=== PATIENT | female | born 1950 | race Caucasian/White ===

== ENCOUNTER 2021-12-30 09:54 | Inpatient (IN) ==
[2021-12-30 11:39] LABS: Basophils % 0.2 % (0.0-0.8); Eosinophils # 0.1 10*3/uL (0.0-0.87); Eosinophils % 1.5 % (0.00-10.9); Hematocrit 30.6 VOL% (35.7-47.0); Hemoglobin 10.4 GM/DL (12.0-16.0); Immature Granulocytes % 0.7 %; Immature Granulocytes Absolute 0.07 #; Lymphocytes # 0.4 10*3/uL (1.4-4.0); Mean Corpuscular Volume 96.2 FL (87-102); Monocytes # 0.4 10*3/uL (0.11-0.8); Monocytes % 3.8 % (1.7-12.7); Neutrophils % 89.8 % (38.7-73.9); Platelet Count 235 T/CUMM (130-400); Red Blood Count 3.18 MC/CUMM (3.8-5.5); White Blood Count 9.6 T/CUMM (4-12)
[2021-12-30 11:53] LABS: Calcium 8.8 MG/DL (8.5-10.1); Osmolality,Calculated 271.1 MOS/KG (273-304); Potassium 2.8 MMOL/L (3.5-5.1)
[2021-12-30 12:13] LABS: Eosinophils 1 % (0-10); Lymphocytes 1 % (20-55); Total Cells Counted 100
[2021-12-30] MEDS ORDERED: VANCOMYCIN INJ 750 MG in SODIUM CHLORIDE 0.9% 250 ML IV ONE (12:46)
[2021-12-30 12:51] LABS: Sedimentation Rate-Westergren 113 MM/HR (0-30)
[2021-12-30] MEDS ORDERED: predniSONE 10 MG TABLET PO PRN (14:43)
[2021-12-30] MEDS ORDERED: POTASSIUM CHLORIDE RIDER 10 MEQ/100 ML PREMIX IV PRN (14:46)
[2021-12-30] MEDS ORDERED: POTASSIUM CHLORIDE 20 MEQ TABLET PO PRN (14:46)
[2021-12-30] MEDS ORDERED: POTASSIUM CHLORIDE 20 MEQ TABLET PO ONE (14:46)
[2021-12-30] MEDS ORDERED: MAGNESIUM SULF RIDER 2 GM/50 ML PREMIX IV PRN (14:46)
[2021-12-30] MEDS ORDERED: MAGNESIUM SULF RIDER 4 GM/100 ML PREMIX IV PRN (14:46)
[2021-12-30] MEDS: SODIUM CHLORIDE 0.9% 1,000 ML IV SCH (16:43)
[2021-12-30] MEDS ORDERED: NON-FORMULARY MEDICATION (Esomeprazole Magnesium 40 mg capsule,delayed release(DR/EC)) PO SCH (21:00)
[2021-12-30] MEDS: CELECOXIB 200 MG CAPSULE PO SCH (21:23)
[2021-12-30] MEDS: GABAPENTIN 400 MG CAPSULE PO SCH (21:24)
[2021-12-30] MEDS: ACETAMINOPHEN 325 MG TABLET PO PRN (21:25)
[2021-12-30] MEDS: traZODone 50 MG TABLET PO SCH (21:26)
[2021-12-30] MEDS: DOCUSATE SODIUM 100 MG CAPSULE PO SCH (21:28)
[2021-12-30] MEDS: ENOXAPARIN 40 MG/0.4 ML SYRINGE SUBCUT SCH (21:28)
[2021-12-31] MEDS: SODIUM CHLORIDE 0.9% 1,000 ML IV SCH ×4 (00:37→22:32)
[2021-12-31] MEDS: VANCOMYCIN INJ 750 MG in SODIUM CHLORIDE 0.9% 250 ML IV SCH ×2 (01:49→15:04)
[2021-12-31 05:12] LABS: Calcium 8.7 MG/DL (8.5-10.1); Osmolality,Calculated 272.7 MOS/KG (273-304); Potassium 3.9 MMOL/L (3.5-5.1)
[2021-12-31] MEDS: cefTRIAXone 1,000 MG in SODIUM CHLORIDE 0.9% 100 ML IV SCH (08:34)
[2021-12-31] MEDS: FLUoxetine 20 MG CAPSULE PO SCH (08:36)
[2021-12-31] MEDS: FOLIC ACID 1 MG TABLET PO SCH (08:36)
[2021-12-31] MEDS: TRIAMTERENE/HCTZ 37.5-25 MG TABLET PO SCH (08:36)
[2021-12-31] MEDS: PANTOPRAZOLE 40 MG TABLET PO SCH (08:36)
[2021-12-31] MEDS: DOCUSATE SODIUM 100 MG CAPSULE PO SCH ×2 (08:36→21:09)
[2021-12-31] MEDS: CELECOXIB 200 MG CAPSULE PO SCH ×2 (08:36→21:07)
[2021-12-31] MEDS ORDERED: predniSONE 10 MG TABLET PO SCH (09:00)
[2021-12-31] MEDS: ACETAMINOPHEN 325 MG TABLET PO PRN ×2 (13:00→21:08)
[2021-12-31] MEDS: HYDROmorphone 1 MG/1 ML SYRINGE IV PRN (21:05)
[2021-12-31] MEDS: ONDANSETRON 4 MG/2 ML VIAL IV PRN (21:07)
[2021-12-31] MEDS: traZODone 50 MG TABLET PO SCH (21:08)
[2021-12-31] MEDS: GABAPENTIN 400 MG CAPSULE PO SCH (21:08)
[2021-12-31] MEDS: ENOXAPARIN 40 MG/0.4 ML SYRINGE SUBCUT SCH (21:09)
[2022-01-01] MEDS: VANCOMYCIN INJ 750 MG in SODIUM CHLORIDE 0.9% 250 ML IV SCH ×2 (02:09→16:43)
[2022-01-01] MEDS: HYDROmorphone 1 MG/1 ML SYRINGE IV PRN ×4 (04:45→18:33)
[2022-01-01] MEDS: ONDANSETRON 4 MG/2 ML VIAL IV PRN (04:47)
[2022-01-01] MEDS: PANTOPRAZOLE 40 MG TABLET PO SCH (09:38)
[2022-01-01] MEDS: FOLIC ACID 1 MG TABLET PO SCH (09:38)
[2022-01-01] MEDS: FLUoxetine 20 MG CAPSULE PO SCH (09:38)
[2022-01-01] MEDS: TRIAMTERENE/HCTZ 37.5-25 MG TABLET PO SCH (09:38)
[2022-01-01] MEDS: cefTRIAXone 1,000 MG in SODIUM CHLORIDE 0.9% 100 ML IV SCH (09:38)
[2022-01-01] MEDS: CELECOXIB 200 MG CAPSULE PO SCH ×2 (09:38→20:08)
[2022-01-01] MEDS: SODIUM CHLORIDE 0.9% 1,000 ML IV SCH ×3 (09:39→20:35)
[2022-01-01] MEDS: DOCUSATE SODIUM 100 MG CAPSULE PO SCH ×2 (11:17→20:12)
[2022-01-01] MEDS ORDERED: DIPH/TET/ACEL PERT BOOSTER VACCINE 0.5 ML VIAL IM ONE (13:00)
[2022-01-01] MEDS ORDERED: DIAZEPAM 5 MG TABLET PO ONE (13:00)
[2022-01-01] MEDS: traZODone 50 MG TABLET PO SCH (20:08)
[2022-01-01] MEDS: GABAPENTIN 400 MG CAPSULE PO SCH (20:09)
[2022-01-01] MEDS: ENOXAPARIN 40 MG/0.4 ML SYRINGE SUBCUT SCH (20:10)
[2022-01-02] MEDS: SODIUM CHLORIDE 0.9% 1,000 ML IV SCH ×4 (00:52→13:58)
[2022-01-02] MEDS: VANCOMYCIN INJ 750 MG in SODIUM CHLORIDE 0.9% 250 ML IV SCH ×2 (01:39→15:23)
[2022-01-02] MEDS: HYDROmorphone 1 MG/1 ML SYRINGE IV PRN ×3 (09:13→12:02)
[2022-01-02] MEDS: TRIAMTERENE/HCTZ 37.5-25 MG TABLET PO SCH (09:13)
[2022-01-02] MEDS: PANTOPRAZOLE 40 MG TABLET PO SCH (09:13)
[2022-01-02] MEDS: cefTRIAXone 1,000 MG in SODIUM CHLORIDE 0.9% 100 ML IV SCH (09:14)
[2022-01-02] MEDS ORDERED: ONDANSETRON 4 MG/2 ML VIAL ONE (09:37)
[2022-01-02] MEDS ORDERED: LIDOCAINE 2% 5 ML VIAL ONE (09:37)
[2022-01-02] MEDS ORDERED: fentaNYL 100 MCG/2 ML VIAL ONE (09:37)
[2022-01-02] MEDS ORDERED: propofoL 200 MG/20 ML VIAL IV ONE (09:37)
[2022-01-02] MEDS ORDERED: MIDAZOLAM 2 MG/2 ML VIAL ONE (09:37)
[2022-01-02] MEDS ORDERED: FAMOTIDINE 20 MG/2 ML VIAL IV ONE (09:47)
[2022-01-02] MEDS ORDERED: ACETAMINOPHEN INJ 1,000 MG/100 ML VIAL IV ONE (10:30)
[2022-01-02] MEDS ORDERED: PHENYLEPHRINE 1 MG/10 ML SYRINGE IV ONE (10:43)
[2022-01-02] MEDS ORDERED: HYDROCORTISONE 100 MG VIAL ONE (10:52)
[2022-01-02] MEDS ORDERED: SEVOFLURANE 1 UNIT/15 MINUTE INH ONE (11:11)
[2022-01-02] MEDS: MEPERIDINE 25 MG/1 ML VIAL IV PRN ×2 (11:30→11:40)
[2022-01-02] MEDS ORDERED: MEPERIDINE 25 MG/1 ML VIAL ONE ×2 (11:34→11:43)
[2022-01-02] MEDS ORDERED: ONDANSETRON 4 MG/2 ML VIAL IV PRN (11:45)
[2022-01-02] MEDS: CELECOXIB 200 MG CAPSULE PO SCH ×2 (12:14→22:15)
[2022-01-02] MEDS: DOCUSATE SODIUM 100 MG CAPSULE PO SCH ×2 (12:14→22:14)
[2022-01-02] MEDS: FLUoxetine 20 MG CAPSULE PO SCH (13:22)
[2022-01-02] MEDS: FOLIC ACID 1 MG TABLET PO SCH (13:22)
[2022-01-02] MEDS: GABAPENTIN 400 MG CAPSULE PO SCH (22:14)
[2022-01-02] MEDS: traZODone 50 MG TABLET PO SCH (22:14)
[2022-01-03] MEDS: VANCOMYCIN INJ 750 MG in SODIUM CHLORIDE 0.9% 250 ML IV SCH ×2 (02:04→15:18)
[2022-01-03] MEDS: SODIUM CHLORIDE 0.9% 1,000 ML IV SCH ×4 (02:08→18:49)
[2022-01-03] MEDS: cefTRIAXone 1,000 MG in SODIUM CHLORIDE 0.9% 100 ML IV SCH (09:08)
[2022-01-03] MEDS: FOLIC ACID 1 MG TABLET PO SCH (09:11)
[2022-01-03] MEDS: PANTOPRAZOLE 40 MG TABLET PO SCH (09:11)
[2022-01-03] MEDS: TRIAMTERENE/HCTZ 37.5-25 MG TABLET PO SCH (09:11)
[2022-01-03] MEDS: CELECOXIB 200 MG CAPSULE PO SCH ×2 (09:11→20:15)
[2022-01-03] MEDS: DOCUSATE SODIUM 100 MG CAPSULE PO SCH ×2 (09:11→20:15)
[2022-01-03] MEDS: FLUoxetine 20 MG CAPSULE PO SCH (09:11)
[2022-01-03] MEDS: HYDROmorphone 1 MG/1 ML SYRINGE IV PRN (20:10)
[2022-01-03] MEDS: GABAPENTIN 400 MG CAPSULE PO SCH (20:14)
[2022-01-03] MEDS: traZODone 50 MG TABLET PO SCH (20:14)
[2022-01-03] MEDS: ENOXAPARIN 40 MG/0.4 ML SYRINGE SUBCUT SCH (22:59)
[2022-01-04] MEDS: VANCOMYCIN INJ 750 MG in SODIUM CHLORIDE 0.9% 250 ML IV SCH ×2 (01:57→13:35)
[2022-01-04] MEDS: SODIUM CHLORIDE 0.9% 1,000 ML IV SCH ×5 (03:51→22:20)
[2022-01-04] MEDS: HYDROmorphone 1 MG/1 ML SYRINGE IV PRN ×3 (08:09→19:46)
[2022-01-04] MEDS: FOLIC ACID 1 MG TABLET PO SCH (08:10)
[2022-01-04] MEDS: FLUoxetine 20 MG CAPSULE PO SCH (08:10)
[2022-01-04] MEDS: CELECOXIB 200 MG CAPSULE PO SCH ×2 (08:10→20:47)
[2022-01-04] MEDS: PANTOPRAZOLE 40 MG TABLET PO SCH (08:10)
[2022-01-04] MEDS: DOCUSATE SODIUM 100 MG CAPSULE PO SCH ×2 (08:10→20:52)
[2022-01-04] MEDS: cefTRIAXone 1,000 MG in SODIUM CHLORIDE 0.9% 100 ML IV SCH (08:13)
[2022-01-04] MEDS: TRIAMTERENE/HCTZ 37.5-25 MG TABLET PO SCH (08:16)
[2022-01-04] MEDS: traZODone 50 MG TABLET PO SCH (20:47)
[2022-01-04] MEDS: GABAPENTIN 400 MG CAPSULE PO SCH (20:47)
[2022-01-04] MEDS: ENOXAPARIN 40 MG/0.4 ML SYRINGE SUBCUT SCH (20:50)
[2022-01-05] MEDS: VANCOMYCIN INJ 750 MG in SODIUM CHLORIDE 0.9% 250 ML IV SCH (03:12)
[2022-01-05] MEDS: SODIUM CHLORIDE 0.9% 1,000 ML IV SCH (05:58)
[2022-01-05 08:24] VITALS: BP 122/88
[2022-01-05] MEDS: CELECOXIB 200 MG CAPSULE PO SCH (09:37)
[2022-01-05] MEDS: TRIAMTERENE/HCTZ 37.5-25 MG TABLET PO SCH (09:38)
[2022-01-05] MEDS: PANTOPRAZOLE 40 MG TABLET PO SCH (09:38)
[2022-01-05] MEDS: FLUoxetine 20 MG CAPSULE PO SCH (09:38)
[2022-01-05] MEDS: FOLIC ACID 1 MG TABLET PO SCH (09:38)
[2022-01-05] MEDS: DOCUSATE SODIUM 100 MG CAPSULE PO SCH (09:38)
[2022-01-05] MEDS: cefTRIAXone 1,000 MG in SODIUM CHLORIDE 0.9% 100 ML IV SCH (09:38)
== END 2022-01-05 12:31 | disposition home health service (06) | DRG 502 ==
LOC: N.ED 09:54 → N.EDINP 13:29 → N.5E 15:00
PROVIDERS: ADMIT Family Medicine; ATTEND Family Medicine